=== PATIENT | female | born 1975 | race Caucasian/White ===

== ENCOUNTER 2024-09-15 06:31 | Inpatient (IN) | payer SELFPAY ==
[~2024-09-15] VITALS: Ht 170.2 cm; Wt 126.1 kg
[2024-09-15] VITALS (7 sets, daily range): BP systolic 121–140; BP diastolic 57–91; PULSE 83–98; RESP 18–20; TEMP 97.7–98.9; O2SAT 96–99
[2024-09-15] MEDS: SODIUM CHLORIDE 0.9% 1000ML 1,000 ML IV ONE (08:46)
[2024-09-15] MEDS ORDERED: SODIUM CHLORIDE FLUSH 10 ML SYR INJ PRN (11:15)
[2024-09-15] MEDS: FAMOTIDINE 20 MG TAB PO SCH (11:27)
[2024-09-15] MEDS ORDERED: IOPAMIDOL 370 MG/ML 100 ML INFUS..BTL INJ ONE (13:32)
[2024-09-15] MEDS ORDERED: LISINOPRIL10 MG PO (13:43)
[2024-09-15 16:20] LABS: TROPONIN I 0.077 ng/mL (0-0.300)
[2024-09-15 22:56] LABS: TROPONIN I 0.105 ng/mL (0-0.300)
[2024-09-16 03:18] VITALS: BP 127/84; PULSE 88; RESP 16; TEMP 98.2; O2SAT 98
[2024-09-16 05:27] VITALS: BP 127/84; PULSE 88; RESP 16; TEMP 98.2; O2SAT 98
[2024-09-16 06:43] LABS: TROPONIN I 0.058 ng/mL (0-0.300)
[2024-09-16 07:15] LABS: CHOL/HDL RATIO 3.8 (3.0-3.6)
[2024-09-16 09:19] VITALS: BP 129/78; PULSE 84; RESP 16; TEMP 97.9; O2SAT 99
[2024-09-16] MEDS: LISINOPRIL 10 MG TAB PO SCH (09:20)
[2024-09-16 10:17] VITALS: BP 129/78; PULSE 84; RESP 16; TEMP 97.9; O2SAT 99
== END 2024-09-16 11:05 | disposition home or self-care (01) | DRG 392 ==
LOC: FSED 06:45 → ERHOLD 11:14 → MED/SURG 12:50
PROVIDERS: ADMIT Internal Medicine; ATTEND Internal Medicine
DX: K57.32 Diverticulitis of large intestine without perforation or abscess without bleeding (principal); Z68.41 Body mass index [BMI] 40.0-44.9, adult; I31.39 Other pericardial effusion (noninflammatory); R07.89 Other chest pain; K29.70 Gastritis, unspecified, without bleeding; I10 Essential (primary) hypertension; E66.9 Obesity, unspecified; R79.1 Abnormal coagulation profile; Z79.899 Other long term (current) drug therapy
CPT/HCPCS: 36415; 71046; 71275; 74177; 80053; 80061; 82550; 84484; 85025; 85379; 93005; 93306; 99283; J2543; J7030; Q9967